=== PATIENT | male | born 1975 | race American Indian/Alaskan Native ===

== ENCOUNTER 2016-10-20 08:53 | Outpatient (CLI) | payer OTHER ==
--- NOTE | 2016-10-20 09:43 | XRay Report ---
LUMBOSACRAL SPINE, FIVE VIEWS: HISTORY: Back pain with sciatica. Views of the lumbosacral spine demonstrate normal bony alignment, vertebral height and interspace distances. Oblique views show patent foramina and normal apophyseal joint alignment. IMPRESSION: Normal study.
--- NOTE | 2016-10-20 09:44 | XRay Report ---
BILATERAL KNEES, 3 VIEWS History: Bilateral knee pain. Findings: Normal bone mineralization. No osseous abnormality or joint pathology is appreciated. The soft tissues are within normal limits. Impression: Bilateral knees within normal limits.
== END 2016-10-20 08:54 | disposition home or self-care (01) ==
LOC: XRAY 08:53
PROVIDERS: ATTEND Internal Medicine
DX: Z02.71 Encounter for disability determination (principal); M54.41 Lumbago with sciatica, right side; M25.561 Pain in right knee; M25.562 Pain in left knee
CPT/HCPCS: 72110